=== PATIENT | female | born 1960 | race Caucasian/White ===

== ENCOUNTER → 2016-12-07 | Outpatient (CLI) | payer OTHER ==
--- NOTE | 2016-12-07 09:16 | DX ---
Left Wrist, Three Views December 07, 2016, 0836 Hours Indication: Follow up open reduction, internal fixation. Comparison: November 08, 2016. Findings: A palmar plate and screw fixation of a transverse fracture of the distal radius is in anato peggy alignment. There is some progressive callus formation suggesting healing. Mildly displaced ulnar styloid fracture is again noted. Impressions 1. The palmar plate and screw fixation of the distal radial fracture is in anatomic alignment with ev idence of healing. 2. Stable position of the minimally displaced ulnar styloid fracture fragment.
== END ==
LOC: BMCIMAGING 08:35
PROVIDERS: ATTEND Physician Assistant
DX: Z47.89 Encounter for other orthopedic aftercare (principal); S52.502D Unspecified fracture of the lower end of left radius, subsequent encounter for closed fracture with routine healing

== ENCOUNTER → 2017-01-18 | Outpatient (CLI) | payer OTHER | LOC: BMCIMAGING 08:40 | PROVIDERS: ATTEND Physician Assistant | DX: S52.592D Other fractures of lower end of left radius, subsequent encounter for closed fracture with routine healing (principal) ==

== ENCOUNTER → 2017-03-20 | Outpatient (CLI) | payer OTHER | LOC: FIMAGING 07:36 | DX: Z12.31 Encounter for screening mammogram for malignant neoplasm of breast (principal); Z80.3 Family history of malignant neoplasm of breast | CPT/HCPCS: G0202 ==

== ENCOUNTER → 2018-03-22 | Outpatient (CLI) | payer OTHER | LOC: FIMAGING 07:55 | PROVIDERS: ATTEND Internal Medicine | DX: Z12.31 Encounter for screening mammogram for malignant neoplasm of breast (principal); Z80.3 Family history of malignant neoplasm of breast ==

== ENCOUNTER → 2019-03-19 | Outpatient (CLI) | payer OTHER | LOC: FIMAGING 08:13 | PROVIDERS: ATTEND Internal Medicine | DX: Z12.13 Encounter for screening for malignant neoplasm of small intestine (principal); Z80.3 Family history of malignant neoplasm of breast ==